=== PATIENT | female | born 1970 | race Caucasian/White ===

== ENCOUNTER → 2016-08-29 | Outpatient (CLI) | payer OTHER ==
--- NOTE | 2016-08-29 20:11 | MA ---
Screening Digital Mammogram With Tomosynthesis and iCAD Indication: Routine screening. Mother diagnosed with breast cancer at the age of 52. Technique: Standard digital CC projections were obtained. Digital breast tomosynthesis was performed in the MLO projection with reconstruction at 1.0 mm slice thickness. Composite MLO views were recons tructed. This examination was processed by the iCAD computer-aided detection system. Comparison: August 2015, March 2012, and May 2011 Breast density: Type C. Findings: CAD was reviewed. No suspicious microcalcifications, mass, or architectural distortion. Impression: Negative unchanged mammograms. BI-RADS 1: Negative mammogram. Recommendation: Routine screening is recommended in one year, as long as physical examination is leonora ign in this patient with moderately dense breast parenchyma. [facility] will send a result letter to the patient. Negative mammography should not preclude additional workup of a clinically suspicious finding. The patient's information is entered into a reminder system with a target due date for her next mammo gram.
== END ==
LOC: FIMAGING 11:09
DX: Z12.31 Encounter for screening mammogram for malignant neoplasm of breast (principal); Z80.3 Family history of malignant neoplasm of breast
CPT/HCPCS: G0202

== ENCOUNTER → 2017-08-27 | Outpatient (CLI) | payer OTHER | LOC: FIMAGING 14:17 | PROVIDERS: ATTEND Obstetrics & Gynecology Gynecology | DX: Z12.31 Encounter for screening mammogram for malignant neoplasm of breast (principal); Z80.3 Family history of malignant neoplasm of breast ==

== ENCOUNTER 2018-02-20 09:54 | Emergency (ER) | payer OTHER ==
[2018-02-20] MEDS ORDERED: TDAP ADULT 0.5 ML INJ (BOOSTRIX) IM ONE (10:29)
[2018-02-20] MEDS ORDERED: RABIES VACC, HUMAN DIPLOID/PF 2.5 UNIT VIAL (RABAVERT) IM ONE (10:29)
[2018-02-20] MEDS ORDERED: RABIES IMMUNE GLOBULIN 300 UNIT/2 ML VIAL IM ONE (10:29)
--- NOTE | 2018-02-20 11:04 | EDPHY ---
H & P Time Seen by Provider: 02/20/18 10:02 HPI/ROS: CHIEF COMPLAINT: Dog bite HISTORY OF PRESENT ILLNESS: 47-year-old female presents to the emergency department with dog bite to right hand. The incident happened 4 days ago on Sunday when she was in the [facility]. She states that she was having a small dog and then was subsequently bit on the dorsal aspect of her right hand. She immediately washed the area with soap and water. She does not know if the dog belonged anyone. She did not talk with an textile conservator. Unsure of the dog's rabies status. Patient is unsure of her tetanus shot. She saw her primary care provider today who sent her to the emergency department for rabies vaccine. ROS: Denies numbness or tingling in her fingers, retained foreign body, pain in her right wrist. Past Medical/Surgical History: Multiple orthopedic surgeries Social History: Smoking Status: Former smoker Physical Exam: On examination the patient has healing puncture wound to the dorsal aspect of her right hand. There is no surrounding redness or signs of infection. She has full range of motion of her fingers. No palpable bony tenderness. No rotational deformities noted. No drainage from the wounds. Normal sensation to light touch with normal 2 point discrimination. Strong radial pulse at the right wrist. Constitutional: Initial Vital Signs Temperature (C) 37.0 C 02/20/18 09:57 Heart Rate 75 02/20/18 09:57 Respiratory Rate 16 02/20/18 09:57 Blood Pressure 126/94 H 02/20/18 09:57 O2 Sat (%) 98 02/20/18 09:57 O2 Delivery Mode Room Air Allergies/Adverse Reactions: morphine Allergy (Unknown, Verified 02/20/18 09:56) Home Medications: Medication Instructions Recorded Amoxicillin/Clavulanate Pot 875 mg PO BID #10 tab 02/20/18 [Augmentin 875 mg tab] MDM/Departure - MDM ED Course/Re-evaluation: Patient's tetanus shot was updated. The patient describes pending a dog in the [facility] with no contact with the textile conservator. Unsure of the dog's vaccines status. Her primary care provider [facility] to the emergency department for rabies immunoglobulin vaccine. Patient was given rabies immunoglobulin and rabies vaccine and will follow up 4 days 3, 7 and 14 for further rabies vaccine. Patient was also given prescription for Augmentin. - Depart Disposition: Home, Routine, Self-Care Clinical Impression: Dog bite of hand Qualifiers: Encounter type: initial encounter Laterality: right Qualified Code(s): S61.451A - Open bite of right hand, initial encounter; W54.0XXA - Bitten by dog , initial encounter; W54.0XXA - Bitten by dog, initial encounter Condition: Good Instructions: Animal Bite (ED), Acute Wounds (ED) Additional Instructions: Augmentin 875 mg twice daily for 5 days to prevent infection. You were given a tetanus shot today in the emergency department please document this for your records. You were given rabies immunoglobulin 1st dose of rabies vaccine in the emergency department. You need to continue rabies vaccine for 3 additional doses: Dose #2 (day 3) Friday 02/23 Dose #3 (day 7) Tuesday 02/27 Dose #4 (day 14) Tuesday 03/06 Prescriptions: Amoxicillin/Clavulanate Pot [Augmentin 875 mg tab] 875 mg PO BID #10 tab Referrals: Eve Hopkins MD [Primary Care Provider] - As per Instructions
[2018-02-20] MEDS ORDERED: RABIES IMMUNE GLOBULIN 150 UNIT/ML 10 ML VIAL IM ONE (11:30)
[2018-02-20 12:35] VITALS: BP 158/98
== END 2018-02-20 12:35 | disposition home or self-care (01) ==
DX: S61.451A Open bite of right hand, initial encounter (principal); Z23 Encounter for immunization; Z87.891 Personal history of nicotine dependence; W54.0XXA Bitten by dog, initial encounter; Y99.8 Other external cause status

== ENCOUNTER → 2018-04-16 | Outpatient (CLI) | payer OTHER | LOC: BMCIMAGING 13:14 | PROVIDERS: ATTEND Emergency Medicine | DX: K43.9 Ventral hernia without obstruction or gangrene (principal); D17.71 Benign lipomatous neoplasm of kidney ==

== ENCOUNTER → 2018-06-07 | Outpatient (CLI) | payer OTHER | LOC: BMCIMAGING 08:25 | PROVIDERS: ATTEND Family Medicine | DX: M25.522 Pain in left elbow (principal) ==

== ENCOUNTER → 2018-09-09 | Outpatient (CLI) | payer OTHER | LOC: FIMAGING 15:30 | PROVIDERS: ATTEND Obstetrics & Gynecology Gynecology | DX: Z12.31 Encounter for screening mammogram for malignant neoplasm of breast (principal); Z80.3 Family history of malignant neoplasm of breast ==